=== PATIENT | male | born 1965 | race Caucasian/White ===

== ENCOUNTER 2018-09-19 08:07 | Emergency (ER) | payer OTHER ==
[2018-09-19] MEDS: IBUPROFEN 800 MG TAB PO (08:58)
== END 2018-09-19 10:07 | disposition home or self-care (01) ==
LOC: FTE 08:07
DX: M25.562 Pain in left knee (principal); F17.210 Nicotine dependence, cigarettes, uncomplicated
CPT/HCPCS: 29505; 73562; 99283-25